=== PATIENT | female | born 1940 | race Caucasian/White ===

== ENCOUNTER → 2016-07-31 | Outpatient (CLI) | payer MEDICARE, BC ==
[~2016-07-31] MED LIST: CALCIUM500 MG PO; FISH OIL500 MG PO; GLUCOSAMINE500 M2 PO; MULTIPLE VITAMI1 CAP PO; PEPCID 20MG TAB20 MG PO; PREDNISONE20 MG PO; SYNTHROID0.1 MG PO
== END ==
LOC: MC.RAD 10:40
DX: Z12.31 Encounter for screening mammogram for malignant neoplasm of breast (principal)

== ENCOUNTER → 2017-12-28 | Outpatient (CLI) | payer MEDICARE, BC | LOC: COL.RAD 14:45 | DX: R10.11 Right upper quadrant pain (principal) ==

== ENCOUNTER → 2019-07-20 | Outpatient (CLI) | payer MEDICARE, BC ==
[~2019-07-20] MED LIST changes: +EPIPEN 2-PAK1 MG/ML IM; -FISH OIL500 MG PO; +LEXAPRO 10MG10 MG PO; +OMEGA-3 1000 MG1 CAP PO; +XALATAN EYE DROPS OU
== END ==
LOC: COL.RAD 08:30
DX: I67.82 Cerebral ischemia (principal); G31.9 Degenerative disease of nervous system, unspecified; J32.0 Chronic maxillary sinusitis
CPT/HCPCS: A9585

== ENCOUNTER → 2021-10-22 | Outpatient (CLI) | payer MEDICARE, BC | LOC: COL.VAS 10:08 | DX: I73.9 Peripheral vascular disease, unspecified (principal) ==